=== PATIENT | female | born 1935 ===

== ENCOUNTER 2018-05-22 20:41 | Emergency (ER) | payer MEDICARE, BC ==
[2018-05-22] MEDS ORDERED: oxyCODONE TAB* 5 MG TAB PO ONE (21:18)
[2018-05-22] MEDS ORDERED: traMADol TAB* 50 MG PO ONE (22:59)
[2018-05-22 23:07] VITALS: BP 151/74
--- NOTE | 2018-05-23 12:29 | RAD ---
Indication: Left upper extremity pain after a fall Comparison: None. Technique: Three views of the left humerus were obtained. Report: There is a minimally impacted fracture at the left humeral surgical neck. There is a small amount of placement of the left greater tuberosity. The remaining visualized bones are intact and appropriately aligned. IMPRESSION: Minimally impacted and displaced fracture at the left humeral surgical neck. The fracture was reported to Sherwin GARCIA over the telephone at 1224 hours on May 23, 2018. R1
--- NOTE | 2018-05-23 17:05 | ED ---
Upper Extremity Pain - HPI Summary HPI Summary: Patient is an 82-year-old female presenting to the ED with a friend with a complaint of left shoulder and arm pain after running into a wall earlier this morning. She states she was unable to call anyone for help and was unsure if she fractured the area. She waited several hours prior to calling a friend to come to the ED. She has dislocated her right shoulder in the past and states this is felt similar. She has been unable to move about the shoulder or the elbow. Most comfortable position remains in internal rotation of the shoulder joint with rest. She however continues to complain of pain. Majority of the pain is located to the left shoulder and radiating down into the humerus as well as the elbow. Denies any forearm pain on deep palpation. Denies any numbness or tingling or temperature changes. However there is ecchymosis to the bicep of the left arm. - History of Current Complaint Chief Complaint: EDExtremityUpper Stated Complaint: FALL Hx Obtained From: Patient Mechanism Of Injury: Direct Blow Onset/Duration: Started Hours Ago Timing: Constant Severity Initially: Moderate Severity Currently: Moderate Pain Location: Shoulder, Arm Character: Aching Aggravating Factor(s): Movement, Lifting, Flexion, Extension, Internal/External Rotation - external rotation, Abduction Alleviating Factor(s): Rest, Other - internal rotation Associated Signs & Symptoms: Negative: Swelling, Redness, Numbness/Tingling, Nausea, Vomiting Related History: Dominant Hand Right - Risk Factors Non-Orthopedic Risk Factor: Negative DVT Risk Factors: Negative Septic Arthritis Risk Factor: Negative Compartment Syndrome Risk Factors: Pain - Allergies/Home Medications Allergies/Adverse Reactions: Allergies Allergy/AdvReac Type Severity Reaction Status Date / Time No Known Allergies Allergy Verified 12/28/12 14:58 PMH/Surg Hx/FS Hx/Imm Hx Previously Healthy: Yes Endocrine/Hematology History: Denies: Hx Diabetes, Hx Thyroid Disease Cardiovascular History: Denies: Hx Hypertension Respiratory History: Denies: Hx Asthma, Hx Chronic Obstructive Pulmonary Disease (COPD) GI History: Denies: Hx Ulcer Musculoskeletal History: Reports: Hx Osteoporosis Denies: Hx Rheumatoid Arthritis - Immunization History Hx Pertussis Vaccination: No Immunizations Up to Date: Unable to Obtain/Confirm Infectious Disease History: No Infectious Disease History: Denies: Hx Hepatitis, Hx Human Immunodeficiency Virus (HIV), Traveled Outside the [place] in Last 30 Days - Social History Occupation: Employed Full-time Lives: With Family Alcohol Use: None Hx Substance Use: No Substance Use Type: Reports: None Hx Tobacco Use: No Smoking Status (MU): Never Smoked Tobacco Review of Systems Constitutional: Negative Negative: Fever, Chills, Fatigue, Skin Diaphoresis Negative: Palpitations, Chest Pain Negative: Shortness Of Breath, Cough Genitourinary: Negative Positive: no symptoms reported, see HPI Positive: Arthralgia - L shoulder injury Skin: Negative Neurological: Negative All Other Systems Reviewed And Are Negative: Yes Physical Exam Triage Information Reviewed: Yes Vital Signs On Initial Exam: Initial Vitals Temp Pulse Resp BP Pulse Ox 100.1 F 72 15 175/74 98 05/22/18 21:08 05/22/18 21:08 05/22/18 21:08 05/22/18 21:08 05/22/18 21:08 Vital Signs Reviewed: Yes Appearance: Positive: Well-Appearing, Well-Nourished Skin: Positive: Warm, Skin Color Reflects Adequate Perfusion, Other - ecchymosis to the L bicep Head/Face: Positive: Normal Head/Face Inspection Eyes: Positive: EOMI, IRMA, Conjunctiva Clear Neck: Positive: Supple Respiratory/Lung Sounds: Positive: Breath Sounds Present Cardiovascular: Positive: Normal Neurological: Positive: Other - comfort with internal rotation; unable to external rotate or abduct Psychiatric: Positive: Affect/Mood Appropriate Diagnostics - Vital Signs Vital Signs Temp Pulse Resp BP Pulse Ox 05/22/18 23:06 98.6 F 78 18 151/74 98 05/22/18 21:08 100.1 F 72 15 175/74 98 - Laboratory Lab Statement: Any lab studies that have been ordered have been reviewed, and results considered in the medical decision making process. Course/Dx - Course Course Of Treatment: Patient is evaluated for left shoulder injury. X-ray obtained which shows a impacted humeral fracture, xray read by BRYCE Conner in ED. sling is given. It appears there is no dislocation present. Patient continues to be unable to move about the joint. She is given a tramadol in the ED as well as a prescription for tramadol at home. She will follow-up with orthopedics early next week. We will call with any x-ray discrepancies. - Diagnoses Differential Diagnosis/HQI/PQRI: Positive: Fracture (Open), Fracture (Closed) Provider Diagnoses: Humeral surgical neck fracture Discharge - Sign-Out/Discharge Documenting (check all that apply): Patient Departure - Discharge Plan Condition: Stable Disposition: HOME Prescriptions: traMADol TAB* [Ultram*] 50 mg PO Q8H PRN #12 tab MDD 3 PRN Reason: Pain Patient Education Materials: Arm Fracture in Adults (ED) Referrals: Pablo Molina MD [Medical Doctor] - Maylin Kincaid DO [Primary Care Provider] - Additional Instructions: Keep arm in sling Follow up with ortho next week Call thursday for an appt Tramadol three times daily as needed for pain - Billing Disposition and Condition Condition: STABLE Disposition: Home
== END 2018-05-22 23:06 | disposition home or self-care (01) ==
LOC: ED 20:41
DX: S42.215A Unspecified nondisplaced fracture of surgical neck of left humerus, initial encounter for closed fracture (principal); W19.XXXA Unspecified fall, initial encounter; Y92.9 Unspecified place or not applicable; M79.602 Pain in left arm
CPT/HCPCS: 99282; A9270-GY

== ENCOUNTER 2018-10-09 09:34 | Emergency (ER) | payer MEDICARE, BC ==
[2018-10-09 10:03] VITALS: BP 152/68
--- NOTE | 2018-10-09 12:48 | UC ---
Abdominal Pain Female HPI - HPI Summary HPI Summary: Started getting sick with congestion, cough, and diarrhea about a week ago. Diarrhea started at multiple times per day and has slowly decreased through the week. Continues to feel very tired and awful, getting fevers now. Unsure when fever started. - History of Current Complaint Chief Complaint: UCGeneralIllness Stated Complaint: DIARRHEA, FATIGUE Time Seen by Provider: 10/09/18 09:56 Hx Obtained From: Patient ?: No Onset/Duration: Gradual Onset, Lasting Days Timing: Constant Severity Initially: Moderate Severity Currently: Moderate Pain Intensity: 4 Location: Other Radiates: No Character: Cramping Aggravating Factor(s): Nothing Alleviating Factor(s): Bowel Movement Associated Signs and Symptoms: Positive: Fever, Cough, Nausea. Negative: Back Pain, Blood in Stool, Urinary Symptoms, Vomiting Allergies/Adverse Reactions: Allergies Allergy/AdvReac Type Severity Reaction Status Date / Time No Known Allergies Allergy Verified 10/09/18 09:58 PMH/Surg Hx/FS Hx/Imm Hx Previously Healthy: Yes Cardiovascular History: Hypertension - Surgical History Surgical History: Yes Surgery Procedure, Year, and Place: appendectomy. hysterectomy - Family History Known Family History: Positive: Hypertension - Social History Occupation: Retired Lives: Alone Alcohol Use: None Substance Use Type: None Smoking Status (MU): Former Smoker When Did the Patient Quit Smoking/Using Tobacco: 1960's Review of Systems All Other Systems Reviewed And Are Negative: Yes Constitutional: Positive: Fever Skin: Positive: Negative Eyes: Positive: Negative ENT: Positive: Nasal Discharge Respiratory: Positive: Cough Cardiovascular: Positive: Negative Gastrointestinal: Positive: Negative Genitourinary: Positive: Negative Motor: Positive: Negative Neurovascular: Positive: Negative Musculoskeletal: Positive: Negative Neurological: Positive: Negative Psychological: Positive: Negative Is Patient Immunocompromised?: No Physical Exam Triage Information Reviewed: Yes Appearance: Well-Appearing, No Pain Distress, Thin Vital Signs: Initial Vital Signs Temp 100.6 F 10/09/18 09:49 Pulse 82 10/09/18 09:49 Resp 18 10/09/18 09:49 BP 180/62 10/09/18 09:49 Pulse Ox 96 10/09/18 09:49 Vital Signs Reviewed: Yes Eye Exam: Normal Eyes: Positive: Conjunctiva Clear ENT: Positive: Hearing grossly normal, Nasal congestion, TMs normal, Other - dry MM in mouth Neck exam: Normal Neck: Positive: Supple, Nontender Respiratory: Positive: No respiratory distress, No accessory muscle use, Crackles - RML Cardiovascular: Positive: RRR, Murmur:Sys:Grade _?_/ - I-II Abdominal Exam: Normal Abdomen Description: Positive: Nontender, No Organomegaly Musculoskeletal Exam: Other - generalized weakness, unable to use LUE due to prevous injury Neurological Exam: Normal Neurological: Positive: Alert Psychological Exam: Normal Skin Exam: Normal Abd Pain Female Course/Dx - Differential Dx/Diagnosis Provider Diagnosis: Pneumonia Discharge - Sign-Out/Discharge Documenting (check all that apply): Patient Departure All imaging exams completed and their final reports reviewed: No Studies - Discharge Plan Condition: Stable Disposition: HOME Prescriptions: Acetaminop/Codeine 30 MG TAB* [Tylenol/Codeine 30 MG TAB*] 1 tab PO Q6H PRN #20 tab MDD 4 PRN Reason: Cough Benzonatate 200 mg PO TID #30 capsule DOXYcycline CAP(*) [DOXYcycline 100MG CAP(*)] 100 mg PO BID #14 cap Patient Education Materials: Bacterial Pneumonia (DC) Referrals: [facility] [Outside] - 3 Days So Worthington MD [Medical Doctor] - 3 Days Additional Instructions: Either follow up with the [facility] on Thursday or Thursday or call [facility] to set up a new patient appointment. If symptoms markedly worsen in the next 48 hours, please go to the hospital emergency department. - Billing Disposition and Condition Condition: STABLE Disposition: Home - Attestation Statements Provider Attestation: I was available for consult. This patient was seen by the FREDRICK. The patient was not presented to, seen by, or examined by me. -Agatha
== END 2018-10-09 10:22 | disposition home or self-care (01) ==
LOC: UCEAST 09:34
DX: J18.9 Pneumonia, unspecified organism (principal); Z87.891 Personal history of nicotine dependence
CPT/HCPCS: 99212; G0463

== ENCOUNTER 2019-04-30 15:44 | Day surgery (SDC) | payer MEDICARE, BC ==
--- NOTE | 2019-04-30 15:54 | ED ---
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 Per the EMS, the pt was shopping [facility] the [facility] when she began to complain to other customers of chest pain and heart problems. She then went into cardiac arrest and the customers called EMS. Upon arriving, EMS attempted CPR for 4-5 minutes with ROSC obtained, and then immediately began to transport her to [facility]. In the EMS the pts O2 sat was 60- 70%, HR was tachycardic @ 110+ bpm, BP was normal, blood sugar was normal, and no medications were administered. She is a former smoker. - History of Current Complaint Stated Complaint: STEMI PER EMS Hx Obtained From: EMS Hx From Patient Unobtainable Due To: Other - LEVEL 5 CAVEAT. Unable to obtain full hx from pt due to her being non-responsive. Onset/Duration: Started Minutes Ago, Still Present Time of Onset: 15:15 Timing: Constant, Lasting Minutes Chest Pain Location: Diffuse Associated Signs and Symptoms: Positive: Chest Pain. Negative: Fever - Allergy/Home Medications Allergies/Adverse Reactions: Allergies Allergy/AdvReac Type Severity Reaction Status Date / Time No Known Allergies Allergy Verified 10/09/18 09:58 PMH/Surg Hx/FS Hx/Imm Hx Endocrine/Hematology History: Denies: Hx Diabetes, Hx Thyroid Disease Cardiovascular History: Denies: Hx Hypertension Respiratory History: Denies: Hx Asthma, Hx Chronic Obstructive Pulmonary Disease (COPD) GI History: Denies: Hx Ulcer Musculoskeletal History: Reports: Hx Osteoporosis Denies: Hx Rheumatoid Arthritis Sensory History: Denies: Hx Legally Blind, Hx Deafness Opthamlomology History: Denies: Hx Legally Blind EENT History: Denies: Hx Deafness - Surgical History Surgery Procedure, Year, and Place: appendectomy. hysterectomy Infectious Disease History: Denies: Hx Hepatitis, Hx Human Immunodeficiency Virus (HIV) - Family History Known Family History: Positive: Hypertension - Social History Alcohol Use: None Hx Substance Use: No Substance Use Type: Reports: None Hx Tobacco Use: No Smoking Status (MU): Former Smoker Review of Systems Negative: Fever Positive: Chest Pain All Other Systems Reviewed And Are Negative: No - Comments Additional Review of Systems Comments: LEVEL 5 CAVEAT. PT IS NON-RESPONSIVE AND UNABLE TO PROVIDE FULL Hx. Physical Exam - Summary Physical Exam Summary: Appearance: The patient is well-nourished in no acute distress and in no acute pain. Skin: The skin is warm and dry and skin color reflects adequate perfusion. HEENT: The head is normocephalic and atraumatic. The pupils are small. The conjunctivae are clear and without drainage. Nares are patent and without drainage. Mouth reveals moist mucous membranes and the throat is without erythema and exudate. The external ears are intact. The ear canals are patent and without drainage. The tympanic membranes are intact. Neck: The neck is supple with full range of motion and non-tender. There are no carotid bruits. There is no neck vein distension. Respiratory: Chest is non-tender. Lungs are clear to auscultation and breath sounds are symmetrical and equal. Cardiovascular: Heart is regular rate and rhythm. There is no murmur or rub auscultated. There is no peripheral edema and pulses are symmetrical and equal. Abdomen: The abdomen is soft and non-tender. There are normal bowel sounds heard in all four quadrants and there is no organomegaly palpated. Musculoskeletal: There is no back tenderness noted. Extremities are non-tender with full range of motion. There is good capillary refill. There is no peripheral edema or calf tenderness elicited. Neurological: The pt is unresponsive. Occasional phonating and moving of bilateral upper extremities. GCS of 3 (See scale). Psychiatric: The patient has an appropriate affect and does not exhibit any anxiety or depression. LEVEL 5 CAVEAT. PT IS NON-RESPONSIVE AND UNABLE TO PROVIDE FULL Hx. Triage Information Reviewed: Yes Vital Signs Reviewed: Yes Completion Of Physical Exam Limited Due To: Level 5 - LEVEL 5 CAVEAT. PT IS NON- RESPONSIVE AND UNABLE TO PROVIDE FULL Hx. - Charlotte Coma Scale Best Eye Response: 1 - None Best Motor Response: 1 - None Best Verbal Response: 1 - None Coma Scale Total: 3 Procedures - Intubation Time of Intubation: 16:00 Intubation Method: orotracheal Tube Size (cm): 7.5 Breath Sounds after Intubation: equal Intubation Complications: no complications Post Intubation Xray: No - patient was given etomidate 20 mg IV for intubation Diagnostics - Laboratory Result Diagrams: 04/30/19 16:45 04/30/19 16:45 Lab Statement: Any lab studies that have been ordered have been reviewed, and results considered in the medical decision making process. - EKG 1549 Cardiac Rate: Tachycardia - 119 bpm EKG Rhythm: Sinus Tachycardia Re-Evaluation - Re-Evaluation First Eval Re-Evaluation Time: 15:04 Comment: pt was transported to manufacturing laborer. Disposition - Course Course Of Treatment: Ms. Mccain apparently complained of chest pain and collapsed at times. The ambulance found her pulseless with some agonal respirations, started CPR and gave her IV epi. They got a spontaneous return of pulses, obtained an EKG and transported her in. They read the EKG as an inferior STEMI and an alert was called from the field. The patient was met by myself and the team as well as Dr. Fischer and shortly thereafter Dr. Rangel. She was in a sinus rhythm and breathing on her own however she was completely unresponsive. An EKG did reveal an inferior wall STEMI. The patient was intubated and prepared for the Sustainability Purchasing Agent. Dr. barboza for transport patient up to the catheter lab about 30 minutes after arrival. - Diagnoses Provider Diagnoses: Cardiac arrest with successful resuscitation, Acute RI, inferior wall, initial episode of care - Critical Care Time Critical Care Time: 30-74 min - 30 minutes Discharge - Sign-Out/Discharge Documenting (check all that apply): Patient Departure All imaging exams completed and their final reports reviewed: No Studies Patient Received Moderate/Deep Sedation with Procedure: No - Discharge Plan Condition: Critical Disposition: ADMITTED TO [facility] - Billing Disposition and Condition Condition: CRITICAL Disposition: Admitted to [facility] - Attestation Statements Document Initiated by Juana: Yes Documenting Scribe: Arturo Villagran Provider For Whom Juana is Documenting (Include Credential): Josep Whitehead MD Scribe Attestation: I, Arturo Villagran, scribed for Josep Whitehead MD on 04/30/19 at 1831. Scribe Documentation Reviewed: Yes Provider Attestation: The documentation as recorded by the Arturo walls accurately reflects the service I personally performed and the decisions made by me, Josep Whitehead MD Status of Scribe Document: Viewed
[2019-04-30] MEDS ORDERED: Heparin for STEMI(*) 5,000 UNITS/ML 1 ML VIAL IV ONE ×2 (15:58→16:06)
[2019-04-30] MEDS ORDERED: Aspirin 81 mg CHEW TAB* 81 MG TAB.CHEW ONE (15:58)
[2019-04-30] MEDS ORDERED: Ticagrelor* 90 MG TAB PO ONE ×2 (15:58→16:02)
[2019-04-30] MEDS ORDERED: EPINEPHrine SYR 0.1MG/ML* SYRINGE ONE ×4 (16:02→16:35)
--- OUTSIDE RECORDS SUMMARY | 2019-04-30 16:02 | XMS REPORT | Continuity of Care Document ---
:1935 External Reference #:[id number] Author Name FRANKLIN Mckeon Address [address] [place] [address] Care Team Providers Name Role Phone So Worthington M.D. Care Team Information Blister Rust Eradicator Unavailable So Worthington M.D. Primary Care Physician Unavailable Payers Date Identification Numbers Payment Provider Subscriber Effective: 2007 Policy Number: [id number] [employer] [place] Nilda Mccain PayID: [id number] [address] [place] [address] Effective: 2018 Policy Number: [id number] [facility] Nilda Mccain PayID: [id number] [address] [place] [address] Problems Active Problems Provider Date Elevated blood-pressure reading without So Worthington M.D. Onset: 01/31/2019 diagnosis of hypertension Coronary arteriosclerosis So Worthington M.D. Onset: 01/31/2019 Pain in left arm So Worthington M.D. 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 Tobacco Use Start: Unknown Nonsmoker Smoking Status Reviewed: 01/31/19 Nonsmoker ETOH Use Rare Recreational Drug Use Never Used Drugs Tobacco Use Start: Unknown Patient is a former End: Unknown smoker Exercise Type/Frequency Exercises regularly Recent injury has prevented it Dom Violence Screen screening has been done Allergies, Adverse Reactions, Alerts Description No Known Drug Allergies Medications Active Medications SIG Qnty Indications Ordering Provider Date Tramadol HCL 1 every 6 hours 60tabs Carly Bahena, 04/27/2019 50mg as needed 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 04/23/2019 - by mouth twice a Shallish, M.D. 04/26/2019 100mg Capsules day No Active Medications Unknown 03/23/2019 - 04/23/2019 Atorvastatin Calcium 1 by mouth every 90tabs I25.10 So Emmett, 2018 - day M.D. 03/23/2019 10mg Tablets Aspir-Low 1 by mouth every 120tabs I25.10 [facility], 01/31/2019 - 81mg Tablets day M.D. 03/23/2019 Oxyjeovannydonselwyn-Acetaminoph 1 po q6hrs prn Unknown - en pain 01/31/2019 5-325mg Tablets Benzonatate 1 by mouth three Unknown - 200mg times a day as 01/31/2019 Capsules needed for cough Vital Signs Date Vital Result Comment 04/27/2019 9:55am BP Systolic 110 mmHg BP Diastolic 60 mmHg Heart Rate 66 /min Body Temperature 98.8 F Respiratory Rate 16 /min Height 61.5 inches 5'1.50" Weight 131.25 lb BMI (Body Mass Index) 24.4 kg/m2 03/23/2019 5:21pm BP Systolic 130 mmHg BP Diastolic 84 mmHg Heart Rate 78 /min Body Temperature 97.5 F Height 61.5 inches 5'1.50" Weight 138.00 lb BMI (Body Mass Index) 25.6 kg/m2 01/31/2019 12:53pm BP Systolic 150 mmHg BP Diastolic 88 mmHg Heart Rate 72 /min Body Temperature 98.0 F Respiratory Rate 16 /min Height 61.5 inches 5'1.50" Weight 140.00 lb BMI (Body Mass Index) 26.0 kg/m2 10/21/2018 9:46am BP Systolic 164 mmHg BP Diastolic 90 mmHg Heart Rate 72 /min Irr Body Temperature 98.2 F Height 62 inches 5'2" Weight 129.00 lb BMI (Body Mass Index) 23.6 kg/m2 Results Test Date Facility Test Result H/L Range Note Laboratory test 04/27/2019 [facility] Rate 48 finding (607)- - Laboratory test 04/27/2019 [facility] C-Reactive <pending> finding [address] Protein, [place] [address] (607)- - Laboratory test 03/23/2019 [facility] Prince(fma) Ferritin 14 ng/mL Low 15- 200 1 finding Free T4 1.18 ng/dL 0.75-1.54 TSH 0.97 mIU/L 0.50-6.00 Vitamin B-12 1187 pg/mL High 230-1050 2 1 RESULTS VERIFIED BY REPEAT ANALYSIS 2 RESULTS VERIFIED BY REPEAT ANALYSIS Encounters Type Date Location Provider Dx Diagnosis Office Visit 03/23/2019 Main Office Adelaide Carson, R61 Generalized 5:30p [place] hyperhidrosis N95.1 Menopausal and female climacteric states Office Visit 01/31/2019 1:00p Main Office So Worthington, Z00.01 Encounter for [place] general adult medical exam w abnormal findings M79.602 Pain in left arm I25.10 Athscl heart disease of [place] coronary artery w/o ang pctrs R03.0 Elevated blood-pressure reading, w/o diagnosis of htn Office Visit 10/21/2018 10:00a Main Office Adelaide Carson, M25.572 Pain in left [place] ankle and joints of left foot S42.202G Unsp fx upper end of l humerus, subs for fx w delay heal I73.9 Peripheral vascular disease, unspecified Plan of Treatment Future Appointment(s):07/27/2019 9:15 am - So Worthington M.D. at Main [id number] 9:30 am - FRANKLIN Mckeon at Main Ldxsze7508/04/2019 9:40 am - So Worthington M.D. at Main Lxazah4704/27/2019 - KIKI MckeonPM25.512 Pain in left mjmzxpvcA70.562 Pain in left kneeAllNew Medication:Tramadol HCL 50 mg - 1 every 6 hours as needed painNo Active Medications -Comments:Medication Management Patient Understands medications he 's taking? Yes No Are there Barriers to Adherence? Yes No Has the patient been asked about herbal supplements and therapies, andOTC meds? Yes No As always, we strongly encourage a healthy diet and making physical activity a part of your every day life. If you have questions about how or where to start, please contact the office.Follow up:2-3 months
--- OUTSIDE RECORDS SUMMARY | 2019-04-30 16:02 | XMS REPORT | Continuity of Care Document ---
:1935 External Reference #:[id number] Author Name Juan Jose Swift M.D. Address 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 Onset: 08/04/2016 Lens Replaced By Other Means Mars Love O.D. Onset: 08/01/2014 Presbyopia Mars Love O.D. Onset: 08/01/2014 Vitreous opacities Mars Love O.D. Onset: 08/01/2014 Family History Date Family Member(s) Observation Comments General Noncontributory Father Cancer Father due to Cancer () Father Diabetes Mother Noncontributory Mother due to Unknown Causes () Social History Type Date Description Comments Sex Unknown ETOH Use Denies alcohol use Tobacco Use Start: Unknown Patient has never smoked Smoking Status Reviewed: 04/04/19 Patient has never smoked Allergies, Adverse Reactions, Alerts Description No Known Drug Allergies Medications Active Medications SIG Qnty Indications Ordering Provider Date No Active Medications Unknown 04/04/2019 History Medications Atorvastatin Calcium Unknown - 04/04/[address] 1 tablet under Unknown - 04/04/2019 0.4mg Tablets Sub the tongue every 5 minutes as directed Aspir-81 once per day by mouth Unknown - 04/04/[address] Vital Signs Date Vital Result Comment 04/04/2019 9:45am Intraocular Pressure Right Eye 17 mmHg Intraocular Pressure Left Eye 17 mmHg 10/05/2017 11:04am Intraocular Pressure Right Eye 16 mmHg Intraocular Pressure Left Eye 16 mmHg 08/04/2016 11:50am Intraocular Pressure Right Eye 19 mmHg Intraocular Pressure Left Eye 19 mmHg 08/01/2014 10:00am Intraocular Pressure Right Eye 18 mmHg Intraocular Pressure Left Eye 18 mmHg Procedures Date Code Description Status 04/04/2019 50186 Ophthalmoscopy Subsequent Completed 04/04/2019 06310 Eye Exam Est Comprehensive Completed 10/05/2017 56869 Ophthalmoscopy Subsequent Completed 10/05/2017 31767 Refraction Completed 10/05/2017 13945 Eye Exam Est Intermediate Completed 08/08/2016 10030 Remove Secondary Cataract, Laser (Yag) Completed 08/04/2016 28838 Eye Exam Est Intermediate Completed 08/01/2014 24408 Refraction Completed 08/01/2014 71958 Eye Exam Est Comprehensive Completed 05/22/2011 93586 Ophthalmoscopy Initial Completed 05/22/2011 74984 Eye Exam Est Comprehensive Completed 01/10/2010 17711 Eye Exam Est Intermediate Completed 09/07/2009 70391 Eye Exam Est Intermediate Completed 06/11/2009 10311 Extracapsular Cataract Extraction W/Intraocular Lens Completed 03/27/2008 97958 Refraction Completed 03/27/2008 51720 Eye Exam New Comprehensive Completed Encounters Type Date Location Provider Dx Diagnosis Office Visit 04/24/2008 Main Office Juan Jose Swift, 239.2 Neoplasm Unspecified 1:30p [facility] Plan of Treatment 04/04/2019 - Juan Jose Swift M.D.H43.813 Vitreous degeneration, [id number] Presence of intraocular lensFollow up:1 yr
[2019-04-30] MEDS ORDERED: Aspirin 81 mg CHEW TAB* 81 MG TAB.CHEW PO ONE (16:06)
[2019-04-30] MEDS ORDERED: Iohexol 350 (CONTRAST) 200 ML MDV IV ONE (16:22)
[2019-04-30] MEDS ORDERED: Atropine SYRINGE* 0.1 MG/ML 10 ML SYRINGE (1 MG) ONE (16:24)
[2019-04-30] MEDS ORDERED: Sodium Bicarbonate 8.4%* 50 ML SYRINGE ONE (16:26)
[2019-04-30] MEDS ORDERED: Lidocaine 2% (CARDIAC)* 20 MG/ML 5 ML SYRINGE (100 MG) ONE (16:27)
[2019-04-30] MEDS ORDERED: Magnesium Sulfate 1 GM IV* 100 ML BAG IV ONE (16:27)
[2019-04-30 17:01] LABS: Hematocrit 22 % (35-47); Hemoglobin 6.9 g/dL (12.0-16.0); Mean Corpuscular HGB Conc 31 g/dL (31-36); Mean Corpuscular Hemoglobin 28 pg (27-31); Mean Corpuscular Volume 89 fL (80-97); Mean Platelet Volume 10.2 fL (7.4-10.4); Platelet Count 134 10^3/uL (150-450); Red Cell Distribution Width 16 % (10-15); White Blood Count 11.4 10^3/uL (3.5-10.8)
[2019-04-30 17:15] LABS: Albumin 2.2 g/dL (3.2-5.2); Albumin/Globulin Ratio 1.6 (1-3); Alkaline Phosphatase 75 U/L (34-104); BUN/Creatinine Ratio 20.8 (8-20); Blood Urea Nitrogen 20 mg/dL (6-24); Calcium 8.1 mg/dL (8.6-10.3); Creatine Kinase 191 U/L (10-223); EGFR African American 67.2 (>60); EGFR Non-African American 55.5 (>60); Globulin 1.4 g/dL (2-4); Glucose 88 mg/dL (70-100); Sodium 140 mmol/L (135-145); Total Protein 3.6 g/dL (6.4-8.9)
[2019-04-30 17:16] LABS: INR 1.83 (0.82-1.09)
--- NOTE | 2019-04-30 17:17 | CONSULT ---
Consult Consult: Consultation Note -- Critical Care Requesting Physician: Dr Whitehead Reason for consult: cardiac arrest/stemi Limitations in history/physical: encephalopathy, intubated Date of consult: 04/30/2019 HPI: 83y F w/pmhx of HTN, ex-smoker as per last records; complaints of chest pain at [employer], witnessed collapse, EMS arrival in <5 min, CPR started and ROSC obtained <2 min. Brought to ER, NSR, breathing on her own, but not following commands. EKG with RITO inferiorly. Decision to intubate for airway protection, but started to vomit right before on setup. Intubated by ER physician, NGT placed, given asa/brillinta and IV heparin by order of Dr Rangel. Patinet then developed PEA, CPR started, returned with ROSC in 3 min with epi x2. Unable to reach daughter Shauna Meza by ER. Emergently taken to cath lab radiology technician and on arrival again lost pulse, PEA, started CPR. CPR for 25-30 min, multiple epi/calcium/bicarb/atropine. Remained PEA NSR, then wide complex rhythms (not VT), then eventually asystole. CPR continued but unable to obtained ROSC, patient was pronounced by me at 1648. Dr Rangel and I were able to reach and talked to daughter Shauna Meza (who was in [place]), updated and told of patients arrest and . Daughter told us of her CAD and Stent history. ED/floor Course: as above ROS: ROS unable to be obtained secondary to intubated/unresponsive PMHx: HTN; unknown PSHx: unknown Family History: unknown Social History: Alcohol-unknwon, Smoking- ex-smoker?, Drug use-unknown Allergies: unknown Home Medications: unknown Physical Exam: Constitutional: encephalopathic; then intubated Head: normocephalic, atraumatic Eyes: no pallor, no icterus ENT: moist mucous membranes Neck: soft, supple, no jvd, no stridor CVS: normal rate but lisbeth at times in ER, regular, no murmur Resp: bilateral air entry, no rhales, no wheeze, no rhonchi, no acc muscle use Abdomen/GI: soft, nontender, nondistended, BS+ Ext/Msk: warm, pulses+, no edema Skin: intact, warm Neuro: encephalopathic, unable to follow commands in ER , moving to painful stimuli Labs - reviewed after code completed; labs drawn during last code Imaging: - Assessment: 83y F w/pmhx of HTN, ex-smoker as per last records; complaints of chest pain at [employer], witnessed collapse, EMS arrival in <5 min, CPR started and ROSC obtained <2 min. Brought to ER, NSR, breathing on her own, but not following commands. EKG with RITO inferiorly. Decision to intubate for airway protection, but started to vomit right before on setup. Intubated by ER physician, NGT placed, given asa/brillinta and IV heparin by order of Dr Rangel. Patinet then developed PEA, CPR started, returned with ROSC in 3 min with epi x2. Unable to reach daughter Shauna Meza by ER. Emergently taken to cath lab radiology technician and on arrival again lost pulse, PEA, started CPR. CPR for 25-30 min, multiple epi/calcium/bicarb/atropine. Remained PEA NSR, then wide complex rhythms (not VT), then eventually asystole. CPR continued but unable to obtained ROSC, patient was pronounced by me at 1648. Dr Rangel and I were able to reach and talked to daughter Shauna Meza (who was in [place]), updated and told of patients arrest and . Daughter told us of her CAD and Stent history. -Suspected STEMI of inferior wall -Cardiac arrest -acute hypoxic respiratory failure CAD Plan: Plan was for cardiac cath Cardiac arrest, unable to obtain ROSC, decreased on 04/30/2019 at 1648 Total Critical Care time is 40 minutes, excluding procedures/teaching/ rescucitation Kimo Fischer MD Data Center Engineer (Electronically Signed)
[2019-04-30 17:20] LABS: CKMB ng/mL 17.7 ng/mL (0.6-6.3); Chloride 114 mmol/L (101-111)
[2019-04-30 17:24] VITALS: BP 000/000
[2019-04-30 17:29] LABS: ABS Basophils 0.1 10^3/ul (0-0.2); ABS Eosinophils 0.2 10^3/ul (0-0.6); ABS Lymphocytes 6.5 10^3/ul (1.0-4.8); ABS Monocytes 0.5 10^3/ul (0-0.8); ABS Neutrophils 4.2 10^3/ul (1.5-7.7); Eosinophil % 2.2 %; Lymphocyte % 56.6 %; Nucleated Red Blood Cells % 0.3
[2019-04-30 17:30] LABS: Burr Cells 2+
--- NOTE | 2019-04-30 17:31 | PN ---
Progress Note - Progress Note Date of Service: 04/30/19 Note: Code Note Patient arrest on arrival to assistant laboratory director; NSR but no pulse CPR started; code called overhead multiple epi/bicarb/calcium/atropine given Rhythm NSR no pulse, then wide complex rhythm, eventually asystole persisted. Unable to obtain ROSC Patient was pronounced at 1648 on 04/30/2019 Daughter Shauna Meza ([phone]) was notified. I also talked to Son, Dr Bhavik Meza ([phone]) and notified him. I was code leader Kimo Fischer MD General Passenger Agent (electronically signed)
[2019-04-30 17:33] LABS: Anion Gap 12 mmol/L (2-11); CO2 Carbon Dioxide 14 mmol/L (22-32); Potassium 9.5 mmol/L (3.5-5.0)
[2019-04-30 17:34] LABS: Troponin I 11.58 ng/mL (<0.04)
[2019-04-30 17:36] LABS: AST 7388 U/L (13-39)
[2019-04-30 17:38] LABS: ALT 8195 U/L (7-52)
[2019-04-30 17:41] LABS: Activated Partial Thrombo Time 127.4 seconds (26.0-38.0)
--- NOTE | 2019-04-30 18:47 | CONS ---
EMERGENCY ROOM INTERVENTIONAL CARDIOLOGY CONSULT NOTE: DATE OF CONSULT: 04/30/19 INDICATION FOR THE CONSULT: Called by the emergency room for STEMI alert of a patient still en route to the hospital. HISTORY OF PRESENT ILLNESS: The patient was an 83-year-old female who was apparently in [facility] and had a witnessed arrest. Unfortunately, no EMS were there and no CPR was started on her. According to the paramedics, it took at least 5 minutes before they got there. CPR was started. She was hooked up to the defibrillator and they completed 1 round of CPR and got her back to return of spontaneous circulation. Unfortunately, she did not wake up and remained not alert. She was moving somewhat. En route, they were working on trying to get an airway established and put a nasogastric tube in and was using a mask to breathe for her. In the field, an EKG was reported to have suggested the presence of an acute inferior wall myocardial infarction. EKG done in the emergency room demonstrated this as well. In the emergency room, Dr. Rick Whitehead, emergency room physician and Dr. Kimo Fischer were assessing the patient for her hemodynamic and respiratory stability. They decided that the patient should be intubated in order to protect her airway and as such, she was intubated and an NG tube was placed. Aspirin was given along with Brilinta therapy. Of note, while in the emergency room, she ended up losing her pulses in the groin with widening of her QRS complex. CPR was performed and ACLS protocol was performed. She received epinephrine and actually had a return after a couple of minutes of her pulse. Once again, she was not awake at all. Decision was made to try to go to the cardiovascular laboratory since we were able to get a spontaneous return of her pulse. As such, she was brought up with Dr. Fischer's assistance to the cardiovascular laboratory. She was then placed on the cardiovascular table and in prepping her trying to find her pulse , she again lost her pulse and started getting wide complex and bradycardic again. CPR was instituted as well as ACLS protocol under Dr. Fischer's guidance. Despite aggressive measures to attempt to stabilize the patient with multiple rounds of epinephrine, bicarb as well as fluids , we could not reestablish any hemodynamic stability. QRS remained widen every time the CPR was stopped and eventually she developed asystole on monitor. No pulses were ever able to be obtained in multiple locations including femoral artery where clearly she had good pulses when we were able to resuscitate her before as well as in the carotids. She had no spontaneous respirations as well. Dr. Fischer eventually pronounced her at 4:48 p.m. Laboratory results were sent from the emergency room, but were not available during the case. Dr. Fischer spoke with Dr. Rick Whitehead as well, as far as the plan for the patient's body at this point in time and they will be handling that as well as the discharge summary and certificate. Once again, we were never even able to attempt to start the cardiac catheterization. ROS: Unable to obtain PMedHx: HTN reported Family Hx: Unobtainable Social Hx: ? prior smoker( from older records) Allergies: unknown Home medications: Unknown. Physical Exam: (in ER) Neck - supple , unable to assess for JVP (patient flat) Chest - no active rales or rhonchi Cor - distant in nature, no significant murmur Abd - soft Ext - no edema Neuro - unable to follow commands Skin intact Labs- unavailable at time of initial assessment, drawn in livestock laborer. EKG in ER - Acute STEMI inferior posterior wall INITIAL ASSESSMENT ( in ER ) - STEMI involving inferior posterior wall. cc: Dr. Jesús Rodriguez MD at [facility], Dr. Elba Mendez MD [id number]/[place] #: [id number] [facility]
--- NOTE | 2019-05-01 11:46 | CATH ---
CC: Dr. Jesús Rodriguez, [facility] * CARDIAC CATHETERIZATION NOTE: DATE OF PROCEDURE: 04/30/19 - [facility] CATH INDICATION FOR THE PROCEDURE: The patient brought in after a cardiac arrest in the field with return of spontaneous circulation, followed by another cardiac arrest in the emergency room with EKG demonstrating acute ST-segment elevation, inferior wall myocardial infarction. DESCRIPTION OF PROCEDURE: The patient was brought up from the emergency room for an attempt to form an emergent cardiac catheterization in the light of the presence of the ST-segment elevation, inferior posterior wall. Of note, on arrival in the cardiac catheterization lab, she was placed onto the table, prepped and draped, and then as soon as she was prepped and draped, she was found to have lost all pulses in her femoral arteries as well as in her carotid arteries. CPR was administered. Epinephrine was given. From that point on, the code was run by Dr. Kimo Fischer, tv host, who was present throughout the whole time. The cardiac catheterization was never able to be attempted due to no regaining return of spontaneous circulation. I personally placed a right femoral vein catheter under sterile conditions, in order to provide central line access in the middle of the code. The patient was pronounced by Dr. Kimo Fischer (tv host). As such, no cardiac catheterization was able to be performed. [id number]/[facility] #: [id number] MTDD
== END 2019-04-30 16:48 | disposition expired ==
LOC: ED 15:44 → CHICATH 16:13
PROVIDERS: ATTEND Internal Medicine Cardiovascular Disease
DX: I21.19 ST elevation (STEMI) myocardial infarction involving other coronary artery of inferior wall (principal); I46.9 Cardiac arrest, cause unspecified; J44.9 Chronic obstructive pulmonary disease, unspecified; M06.9 Rheumatoid arthritis, unspecified; M81.0 Age-related osteoporosis without current pathological fracture; Z87.891 Personal history of nicotine dependence
CPT/HCPCS: 36415; 80053; 82550; 82553; 83605; 84484; 85025; 85060; 85610; 85730; 93005; 99285; A9270-GY; J0171; J0461; J1644; J3475